=== PATIENT | male | born 1960 | race Caucasian/White ===

== ENCOUNTER 2019-12-21 19:34 | Observation (INO) | payer MEDICARE, OTHER ==
[~2019-12-21] VITALS: Ht 170.2 cm; Wt 72.7 kg
[~2019-12-21 19:34] MED LIST: AZITHROMYCIN 250MG TABLET PO SCH
[2019-12-21] MEDS ORDERED: LOSA50TA88 PO ×2 (20:35→23:37)
[2019-12-21] MEDS ORDERED: ANOR1AER PO (20:35)
[2019-12-21] MEDS ORDERED: ENOX40IN3 SC (20:35)
[2019-12-21] MEDS ORDERED: DALI1TAB2 PO ×2 (20:35→23:37)
[2019-12-21] MEDS ORDERED: TORS100T PO ×2 (20:35→23:37)
[2019-12-21] MEDS ORDERED: DIGO0.123 PO ×2 (20:35→23:37)
[2019-12-21] MEDS ORDERED: MONT10TA4 PO ×2 (20:35→23:37)
[2019-12-21] MEDS ORDERED: CART240C3 PO ×2 (20:35)
[2019-12-21] MEDS ORDERED: SPIR50TA4 PO ×2 (20:35→23:37)
[2019-12-21] MEDS ORDERED: CLOP75TA2 PO ×2 (20:35→23:37)
[2019-12-21] MEDS ORDERED: ISOS20TAB PO ×2 (20:35→23:37)
[2019-12-21] MEDS ORDERED: OMEP40CA97 PO (20:35)
[2019-12-21] MEDS ORDERED: FENO48TA7 PO (20:35)
[2019-12-21] MEDS ORDERED: HYDR-3713 PO ×2 (20:35→23:37)
[2019-12-21] MEDS ORDERED: IPRA0.00 NEB (20:35)
[2019-12-21] MEDS ORDERED: INSU100V3 SQ ×2 (20:35→23:37)
[2019-12-21] MEDS ORDERED: ATOR40TA75 PO ×2 (20:35→23:37)
[2019-12-21 21:09] LABS: BASO % 0.3 % (0.0-1.0); EOS # 0.2 10^3/uL (0.0-0.5); EOS % 2.6 % (0.0-3.0); HEMATOCRIT 43.6 % (42.0-52.0); HEMOGLOBIN 14.3 g/dl (13.5-17.5); LYMPH # 0.8 10^3/uL (1.5-5.0); LYMPH % 9.4 % (24.0-44.0); MEAN CORPUSCULAR HEMOGLOBIN 28.1 pg (27.0-33.0); MEAN CORPUSCULAR HGB CONC 32.8 g/dl (32.0-36.5); MEAN CORPUSCULAR VOLUME 85.7 fl (80.0-96.0); MONO # 0.4 10^3/uL (0.0-0.8); MONO % 4.8 % (0.0-5.0); NEUTROPHILS # 7.1 10^3/uL (1.5-8.5); NEUTROPHILS % 82.4 % (36.0-66.0); PLATELET COUNT, AUTOMATED 343 10^3/uL (150-450); RED BLOOD COUNT 5.09 10^6/uL (4.30-6.10); WHITE BLOOD COUNT 8.6 10^3/uL (4.0-10.0)
[2019-12-21 21:18] LABS: INR 0.97
[2019-12-21 21:19] LABS: PARTIAL THROMBOPLASTIN TIME 34.2 SECONDS (25.0-38.4)
--- NOTE | 2019-12-21 21:26 | REPVR ---
PROCEDURE INFORMATION: Exam: XR Chest, 1 View Exam date and time: 12/21/2019 8:49 PM Age: 59 years old Clinical indication: Other: Chest pain TECHNIQUE: Imaging protocol: XR of the chest Views: 1 view. COMPARISON: No relevant prior studies available. FINDINGS: Lungs: Mild basilar interstitial lung changes. Scattered calcified granulomata. No airspace infiltrates. Pleural space: Unremarkable. No pleural effusion. No pneumothorax. Heart/Mediastinum: Unremarkable. No cardiomegaly. Bones/joints: Prior sternotomy. Prior sternotomy. Skeletal degenerative changes are noted. IMPRESSION: 1. Chronic interstitial changes. 2. No acute findings. Electronically signed by: Martin Lee On 12/21/2019 21:26:30 PM
[2019-12-21 21:51] LABS: ALBUMIN 2.1 GM/DL (3.2-5.2); ALT/SGPT 13 U/L (12-78); BILIRUBIN,DIRECT < 0.1 MG/DL (0.0-0.2); BILIRUBIN,TOTAL 0.2 MG/DL (0.2-1.0); BLOOD UREA NITROGEN 25 MG/DL (7-18); CALCIUM LEVEL 8.8 MG/DL (8.8-10.2); CARBON DIOXIDE LEVEL 30 MEQ/L (21-32); CHLORIDE LEVEL 101 MEQ/L (98-107); CK-MB VALUE MASS 3.9 NG/ML (<3.6); CPK CREATINE PHOSPHOKINASE 94 U/L (39-308); CREATININE FOR GFR 1.05 MG/DL (0.70-1.30); GLOMERULAR FILTRATION RATE > 60.0 (>49); GLUCOSE, FASTING 387 MG/DL (70-100); LIPASE 249 U/L (73-393); MB/CK RELATIVE INDEX 4.15 (< OR =4); NT-PRO BNP 878 PG/ML (<125); POTASSIUM SERUM 5.3 MEQ/L (3.5-5.1); SODIUM LEVEL 133 MEQ/L (136-145); TOTAL PROTEIN 5.7 GM/DL (6.4-8.2); TROPONIN I < 0.02 NG/ML (< 0.10)
--- NOTE | 2019-12-21 22:38 | REPVR ---
PROCEDURE INFORMATION: Exam: XR Left Hip with Pelvis when Performed Exam date and time: 12/21/2019 10:32 PM Age: 59 years old Clinical indication: Other: Fall; Additional info: Fall injury TECHNIQUE: Imaging protocol: XR Left hip with pelvis when performed. Views: 2 or 3 views. COMPARISON: No relevant prior studies available. FINDINGS: Bones/joints: Degenerative changes in the SI joint and left hip. No fracture or malalignment. Soft tissues: Unremarkable. IMPRESSION: 1. No fracture or malalignment. 2. Osteoarthritis. Electronically signed by: Martin Lee On 12/21/2019 22:38:08 PM
--- NOTE | 2019-12-21 22:39 | REPVR ---
PROCEDURE INFORMATION: Exam: XR Left Shoulder Exam date and time: 12/21/2019 10:32 PM Age: 59 years old Clinical indication: Other: Fall; Additional info: Fall injury TECHNIQUE: Imaging protocol: XR Left shoulder. Views: 2 or more views. COMPARISON: No relevant prior studies available. FINDINGS: Bones/joints: Mild degenerative changes. No acute fracture or malalignment. Soft tissues: Soft tissues are unremarkable. IMPRESSION: No fracture or malalignment. Electronically signed by: Martin Lee On 12/21/2019 22:39:30 PM
[2019-12-21] MEDS ORDERED: IPRA0.00 INH (23:37)
[2019-12-21] MEDS ORDERED: OMEP-221 PO (23:37)
[2019-12-21] MEDS ORDERED: ANOR1AER INH (23:37)
[2019-12-21] MEDS ORDERED: ENOX80IN3 SC (23:37)
[2019-12-21] MEDS ORDERED: NITR4TASL SL (23:37)
[2019-12-21] MEDS ORDERED: DILT240C82 PO (23:37)
[2019-12-21] MEDS ORDERED: AZIT-10 PO (23:37)
[2019-12-21] MEDS ORDERED: ACETAMINOPHEN TAB 650MG DOSE (2X325MG) PO PRN (23:45)
[2019-12-21] MEDS ORDERED: NORCO, ANEXSIA 5/325MG TABLET (HYDROcodone/ACETAMINOPHEN) PO PRN (23:45)
--- NOTE | 2019-12-21 23:53 | HPEPDOC ---
[facility] Medical History & Physical Date of Admission Dec 21, 2019 Date of Service: Dec 21, 2019 Attending Physician: Ngozi Rollins MD History and Physical CHIEF COMPLAINT: weakness HISTORY OF PRESENT ILLNESS: Patient is a 59 year old male presenting with chief complaint of generalized weakness. He states around 1100 on 12/21/2019 he was walking and felt sudden onset weakness in his lower extremities causing him to collapse to his knees. He denies LOC, head trauma, or symptoms like chest pain, palpitations, or dyspnea prior to or following the collapse. He states these symptoms were similar to one of the four strokes he has had in the past. After taking an hour or so to get up, he called his who contacted EMS. His work up in the emergency department was unremarkable but concerning for ongoing generalized weakness so the hospitalist team was consulted for admission. PAST MEDICAL HISTORY: Atrial fibrillation on lovenox CAD with x4 stents COPD on 3L at home. Hx of CVAx4 HTN Type 2 DM PAST SURGICAL HISTORY: Mitral valve replacements X2 Cholecystectomy Cardiac catheterization SOCIAL HISTORY: No EtOH use in 20 years, prior 7PPD smoker for 53 years, quit 4 years ago. Denies illicit drug use, lives with his . No pets at home. FAMILY HISTORY: Denies family hx of strokes Brother with lung cancer Father and mother both of renal failure ALLERGIES: Please see below. REVIEW OF SYSTEMS: Constitutional: Denies fevers, chills, night sweats, or recent unexpected weight change HEENT: Denies Headaches, head trauma, No visual changes or eye pain, denies nose bleeds, or difficulty swallowing Cardiovascular: Denies chest pain, palpitations, or orthopnea Respiratory: Denies cough, wheezing, or shortness of breath GI: Todd nausea, vomiting, abdominal pain, diarrhea or constipation : Denies pain with urination or frequency Musculoskeletal: Denies joint pain or swelling Neuro / Psych: As per hpi. Denies numbness/tingling in extremities. States he has numbness in his face bilaterally. Skin: Denies skin rashes HOME MEDICATIONS: Please see below. PHYSICAL EXAMINATION: VITAL SIGNS: See below. GENERAL APPEARANCE: Well appearing male sitting upright with his shirt off in bed in no acute distress HEENT: NC, AT, EOMI, no scleral icterus, mucous membranes moist, no pharyngeal erythema. CARDIOVASCULAR: Irregular rate and rhythm. Normal S1 and S2. Systolic murmur a ppreciated over LUSB. LUNGS: Mildly diminished bilaterally with no wheezes, crackles, or rhonchi. ABDOMEN: Soft, non-tender, non-distended. No masses or ecchymosis. no CVA tenderness. MUSCULOSKELETAL: No muscle or joint pain on exam. EXTREMITIES: No swelling or edema. NEUROLOGICAL: A&Ox3, CN II-XII intact. Strength +5/5 in bilateral upper and lower extremities. Rhomberg sign negative. Patellar and biceps DTR's +2/4. Sensation intact in bilateral UE/LE. PSYCHIATRIC: Normal mood and affect. LABORATORY DATA: See below. IMAGIN12/21/2019 CXR: IMPRESSION: 1. Chronic interstitial changes. 2. No acute findings. 12/21/2019 L-Shoulder XR: IMPRESSION: No fracture or malalignment. 12/21/2019 Hip XR: IMPRESSION: 1. No fracture or malalignment. 2. Osteoarthritis. 12/21/[address]: IMPRESSION: 1. Atrophy and chronic white matter changes. No acute intracranial abnormality. 2. Multiple old infarcts with encephalomalacia. MICROBIOLOGY: Please see below. Assessment/Plan: #. TIA -Head CT ordered to r/o acute bleed s/p fall on lovenox, study indicating multiple old infarcts with encephalomalacia -Neuro exam unremarkable. Patient later stating to nursing staff of diminished sensation in bilateral face that he states had started earlier that day when he had his weakness. -Continue Statin, start full dose aspirin -MRI, MRA, carotid duplex ordered for AM. -Echo ordered #. Generalized weakness, acute. Possibly 2/2 to problem #1. -PT/OT ordered #. Atrial fibrillation on lovenox -Continue lovenox SQ BID -Currently rate controlled on digoxin, cardizem #. COPD on 3L at home. -Continue home zithromax, duonebs, anoro ellipta converted to advair -Patient may take home Roflumilast #. CAD with x4 stents -Denies chest pain, SOB -Continue plavix. #. Hx of CVA -Continue statin, adding full dose ASA #. Hx of CHF? -Patient on spironolactone, losartan, isordil, torsemide -Echo ordered as above. #. HTN -Continue home blood pressure medications #. Type 2 DM -Sliding scale -consistent carb diet Diet: Consistent carbs DVT prophylaxis: On therapeutic lovenox, teds, seqs CODE status: Full code Vital Signs Vital Signs Date Time Temp Pulse Resp B/P (MAP) Pulse Ox O2 Delivery O2 Flow Rate FiO2 12/21/19 19:45 96.2 106 18 151/72 (98) 100 Room Air Laboratory Data Labs 24H Laboratory Tests 2 12/21/19 20:59: Prothrombin Time 13.0, Prothromb Time International Ratio 0.97, Activated Partial Thromboplast Time 34.2, Anion Gap 2L, Glomerular Filtration Rate > 60.0, Calcium Level 8.8, Total Bilirubin 0.2, Direct Bilirubin < 0.1, Aspartate Amino Transf (AST/SGOT) 14, Alanine Aminotransferase (ALT/SGPT) 13, Alkaline Phosphatase 164H, Total Creatine Kinase 94, Creatine Kinase MB 3.9H, Creatine Kinase MB Relative Index 4.15H, Troponin I < 0.02, LI-Umw-Q-Type Natriuretic P eptide 878H, Total Protein 5.7L, Albumin 2.1L, Albumin/Globulin Ratio 0.6, Lipase 249, Thyroid Stimulating Hormone (TSH) 3.050 12/21/19 21:01: Immature Granulocyte % (Auto) 0.5, Neutrophils (%) (Auto) 82.4H, Lymphocytes (%) (Auto) 9.4L, Monocytes (%) (Auto) 4.8, Eosinophils (%) (Auto) 2.6, Basophils (%) (Auto) 0.3, Neutrophils # (Auto) 7.1, Lymphocytes # (Auto) 0.8L, Monocytes # (Auto) 0.4, Eosinophils # (Auto) 0.2, Basophils # (Auto) 0.0, Nucleated Red Blood Cells % (auto) 0.0 CBC/BMP Laboratory Tests 12/21/19 20:59 12/21/19 21:01 Microbiology Microbiology 12/21/19 Blood Culture, Received Pending 12/21/19 Blood Culture, Received Pending Home Medications Scheduled Atorvastatin Calcium (Atorvastatin Calcium) 40 Mg Tablet, 40 MG PO DAILY Azithromycin (Azithromycin) 250 Mg Tablet, 250 MG PO 3XW THURSDAY, THURSDAY AND THURSDAY AT 1600 Clopidogrel Bisulfate (Clopidogrel) 75 Mg Tablet, 75 MG PO DAILY Digoxin (Digoxin) 125 Mcg Tablet, 125 MCG PO DAILY Diltiazem HCl (Diltiazem 24Hr ER) 240 Mg Cap.er.24h, 240 MG PO BID Enoxaparin Sodium (Enoxaparin Sodium) 80 Mg/0.8 Ml Syringe, 80 MG SC Q12H Insulin Aspart (Insulin Aspart) 100 Unit/1 Ml Vial, 10 UNIT SQ AC Isosorbide Dinitrate (Isosorbide Dinitrate) 20 Mg Tablet, 20 MG PO BID Losartan Potassium (Losartan Potassium) 50 Mg Tablet, 50 MG PO DAILY Montelukast Sodium (Montelukast Sodium) 10 Mg Tablet, 10 MG PO DAILY Omeprazole (Omeprazole) 40 Mg Capsule.dr, 40 MG PO DAILY Roflumilast (Daliresp) 500 Mcg Tablet, 500 MCG PO DAILY Spironolactone (Spironolactone) 50 Mg Tablet, 50 MG PO DAILY Torsemide (Torsemide) 100 Mg Tablet, 50 MG PO DAILY Umeclidinium Brm/Vilanterol Tr (Anoro Ellipta 62.5-25 Mcg INH) [address]dev, 1 PUFF INH DAILY Scheduled PRN Hydrocodone/Acetaminophen (Hydrocodone-Acetamin 5-325 mg) 1 Each Tablet, 1 TAB PO Q4H PRN for PAIN MDD 4 Ipratropium/Albuterol Sulfate (Iprat-Albut 0.5-3(2.5) mg/3 ml) 3 Ml Ampul.neb, 3 ML INH QID PRN for SHORTNESS OF BREATH Nitroglycerin (Nitrostat) 0.4 Mg Tab.subl, 0.4 MG SL NITRO PRN for CHEST PAIN Allergies Coded Allergies: Iodinated Contrast Media (Verified Allergy, Unknown, 12/21/19) A-FIB/CHADSVASC A-FIB History Current/History of A-Fib/PAF?: Yes Current PO Anticoag Therapy: No Age/Risk Factor Scoring CHADSVASC: CHADSVASC Response (Comments) Value Age Risk Factor Age < 65 years old 0 Gender Risk Factor Male 0 Hx of CHF Yes 1 Hx of HTN Yes 1 Hx of Stroke/TIA/or VTE Yes 2 Hx of Diabetes Yes 1 Total 5 Treatment Treatment ordered: Other Other anticoagulant ordered: Patient takes therapeutic SQ lovenox BID GME ATTESTATION GME ATTESTATION My faculty preceptor for this patient encounter was physically present during the encounter and was fully available. All aspects of the patient interview, examination, medical decision making process, and medical care plan development were reviewed and approved by the faculty preceptor. The faculty preceptor is aware and concurs with the plan as stated in the body of this note and will attest to such by his/her cosignature. ATTENDING NOTE I, Ngozi Quezada , have independently examined this patient and performed my own physical exam, as well as reviewed the documentation and edited where necessary. I have discussed in detail with the resident / student the findings and plan of treatment as documented by the resident / student and edited their note. I agree with their findings and treatment plan and have edited their documentation. I will continue to follow the patient during this hospital stay HILARIO ADLER DO Dec 21, 2019 23:53 Ngozi Rollins MD Dec 22, 2019 06:07
--- NOTE | 2019-12-22 00:13 | REPVR ---
PROCEDURE INFORMATION: Exam: CT Head Without Contrast Exam date and time: 12/21/2019 11:45 PM Age: 59 years old Clinical indication: Other: Weakness TECHNIQUE: Imaging protocol: Computed tomography of the head without contrast. Radiation optimization: All CT scans at this facility use at least one of these dose optimization techniques: automated exposure control; mA and/or kV adjustment per patient size (includes targeted exams where dose is matched to clinical indication); or iterative reconstruction. COMPARISON: No relevant prior studies available. FINDINGS: Brain: There is mild cerebral atrophy. Changes of chronic white matter microvascular disease are present. No signs of a recent infarction or hemorrhage. Old infarct with large areas of encephalomalacia in the right hemisphere. Smaller infarcts in the left hemisphere. Ventricles: Normal. No ventriculomegaly. Bones/joints: Unremarkable. No acute fracture. Sinuses: Visualized sinuses are unremarkable. No fluid levels. Mastoid air cells: Visualized mastoid air cells are well aerated. Soft tissues: Unremarkable. IMPRESSION: 1. Atrophy and chronic white matter changes. No acute intracranial abnormality. 2. Multiple old infarcts with encephalomalacia. Electronically signed by: Martin Lee On 12/22/2019 00:12:41 AM
[2019-12-22] MEDS: ENOXAPARIN 80MG/0.8ML SYRINGE (J1650 PER 10MG) SC SCH ×3 (00:55→20:52)
[2019-12-22] MEDS: ISOSORBIDE DIN. (ISORDIL) 20 MG TAB PO SCH ×2 (00:55→08:52)
[2019-12-22] MEDS ORDERED: DEXTROSE 50% 50 ML SYRINGE IV PRN (01:00)
[2019-12-22] MEDS ORDERED: GLUCAGON INJ 1MG VIAL SC PRN (01:00)
[2019-12-22] MEDS ORDERED: GLUCOSE 4GM CHEW TABLET PO PRN (01:00)
[2019-12-22 02:57] VITALS: BP 147/87
[2019-12-22] MEDS ORDERED: HumaLOG INSULIN (NovoLOG) PER UNIT SC ONE (03:45)
[2019-12-22 06:00] VITALS: BP 124/82
[2019-12-22 06:03] LABS: HEMATOCRIT 35.6 % (42.0-52.0); HEMOGLOBIN 11.6 g/dl (13.5-17.5); MEAN CORPUSCULAR HEMOGLOBIN 27.7 pg (27.0-33.0); MEAN CORPUSCULAR HGB CONC 32.6 g/dl (32.0-36.5); PLATELET COUNT, AUTOMATED 279 10^3/uL (150-450); RED BLOOD COUNT 4.19 10^6/uL (4.30-6.10); WHITE BLOOD COUNT 7.5 10^3/uL (4.0-10.0)
[2019-12-22 06:29] LABS: BLOOD UREA NITROGEN 27 MG/DL (7-18); CALCIUM LEVEL 8.2 MG/DL (8.8-10.2); CARBON DIOXIDE LEVEL 28 MEQ/L (21-32); CHLORIDE LEVEL 101 MEQ/L (98-107); CREATININE FOR GFR 1.04 MG/DL (0.70-1.30); GLOMERULAR FILTRATION RATE > 60.0 (>49); GLUCOSE, FASTING 398 MG/DL (70-100); POTASSIUM SERUM 4.6 MEQ/L (3.5-5.1); SODIUM LEVEL 133 MEQ/L (136-145)
[2019-12-22 06:40] VITALS: BP 143/79
[2019-12-22 07:17] LABS: ETHYL ALCOHOL (ETHANOL) < 0.003 % (0.000-0.010)
[2019-12-22] MEDS: ADVAIR HFA 230/21MCG INHALER INH SCH ×2 (07:27→20:00)
[2019-12-22] MEDS: HumaLOG INSULIN (NovoLOG) PER UNIT SC SCH ×3 (08:47→18:47)
[2019-12-22] MEDS: ATORVASTATIN 20 MG TAB PO SCH (08:48)
[2019-12-22] MEDS: MONTELUKAST 10 MG TAB PO SCH (08:49)
[2019-12-22] MEDS: DIGOXIN 0.125 MG TAB PO SCH (08:51)
[2019-12-22] MEDS: CLOPIDOGREL 75 MG TAB PO SCH (08:52)
[2019-12-22] MEDS: ASPIRIN 81 MG CHEW TABLET PO SCH (08:54)
[2019-12-22] MEDS ORDERED: FLUBLOK(EGG FREE)(QUAD)INFLUENZA VACC 0.5ML SYRINGE 18YRS & OLDER IM ONE (09:00)
[2019-12-22] MEDS ORDERED: LOSARTAN 50MG TABLET PO SCH (09:00)
[2019-12-22] MEDS ORDERED: SPIRONOLACTONE 50 MG TAB PO SCH (09:00)
[2019-12-22] MEDS ORDERED: TORSEMIDE 100 MG TAB PO SCH (09:00)
--- NOTE | 2019-12-22 13:17 | REPVR ---
PROCEDURE INFORMATION: Exam: MR Head Without Contrast Exam date and time: 12/22/2019 12:54 PM Age: 59 years old Clinical indication: Weakness, extremity; Bilateral; Patient HX: HX CVA, weakness; Additional info: Weakness, TIA TECHNIQUE: Imaging protocol: MR of the head without contrast. COMPARISON: CT Head without contrast 12/21/2019 11:54 PM FINDINGS: Brain: Examination reveals few small foci of restricted diffusion in the left frontal and parietal subcortical white matter consistent with acute lacunar infarctions in the left MCA distribution, most likely embolic in etiology. No acute hemorrhage, mass or midline shift is seen. Stable large chronic infarction/encephalomalacia in the right frontal and parietal lobes and stable smaller chronic infarction in the left frontal and parietal lobes. There is wallerian degeneration of the corticospinal tracts on the right side. There is mild patchy increased T2 signal intensity within the bilateral cerebral periventricular white matter, consistent with chronic microvascular ischemic changes. There is mild diffuse cerebral atrophy present, consistent with this patient's age. Ventricles: The ventricular system demonstrates mild diffuse compensatory enlargement. There is ex vacuo dilatation of the right lateral ventricle. Bones/joints: Unremarkable. Sinuses: Normal as visualized. No acute sinusitis. Mastoid air cells: Normal as visualized. No mastoid effusion. Orbits: Unremarkable. Soft tissues: Unremarkable. IMPRESSION: 1. Examination reveals few small foci of restricted diffusion in the left frontal and parietal subcortical white matter consistent with acute lacunar infarctions in the left MCA distribution, most likely embolic in etiology. No acute hemorrhage, mass or midline shift is seen. 2. Stable large chronic infarction/encephalomalacia in the right frontal and parietal lobes and stable smaller chronic infarction in the left frontal and parietal lobes. There is wallerian degeneration of the corticospinal tracts on the right side. Electronically signed by: Kalia Mares On 12/22/2019 13:17:40 PM
--- NOTE | 2019-12-22 13:24 | REPVR ---
PROCEDURE INFORMATION: Exam: MR Angiogram Head Without Contrast, Arteries Exam date and time: 12/22/2019 12:54 PM Age: 59 years old Clinical indication: Weakness; Additional info: Weakness, TIA TECHNIQUE: Imaging protocol: MR angiogram head without contrast. Exam focused on the arteries. Other technique: 3D rendering: MIP and/or 3D reconstructed images were created by the technologist. COMPARISON: CT Head without contrast 12/21/2019 11:54 PM FINDINGS: ANTERIOR CIRCULATION: Right internal carotid artery: No occlusion. No stenosis. No aneurysm.. Right middle cerebral artery: No occlusion or significant stenosis. No aneurysm. Right anterior cerebral artery: No occlusion or significant stenosis. No aneurysm. Left internal carotid artery: There is complete occlusion of the visualized left internal carotid artery. MR angiogram of the neck or carotid Doppler is recommended for further evaluation. Left middle cerebral artery: There is decreased flow in the M2 segment of the left middle cerebral artery. There is a moderate 50-60% stenosis in the posterior M2 division of the left middle cerebral artery. Left anterior cerebral artery: No occlusion or significant stenosis. No aneurysm. POSTERIOR CIRCULATION: Right vertebral artery: No occlusion or significant stenosis. No aneurysm. Left vertebral artery: No occlusion or significant stenosis. No aneurysm. Basilar artery: No occlusion or significant stenosis. No aneurysm. Right posterior cerebral artery: No occlusion or significant stenosis. No aneurysm. Left posterior cerebral artery: No occlusion or significant stenosis. No aneurysm. IMPRESSION: 1. There is complete occlusion of the visualized left internal carotid artery. MR angiogram of the neck or carotid Doppler is recommended for further evaluation. 2. There is decreased flow in the M2 segment of the left middle cerebral artery. There is a moderate 50-60% stenosis in the posterior M2 division of the left middle cerebral artery. Electronically signed by: Kalia Mares On 12/22/2019 13:24:00 PM
--- NOTE | 2019-12-22 13:30 | REPVR ---
PROCEDURE INFORMATION: Exam: MR Lumbar Spine Without Contrast. Exam date and time: 12/22/2019 12:54 PM Age: 59 years old Clinical indication: Weakness; Additional info: Bl le weakness R/O stenosis TECHNIQUE: Imaging protocol: Multiplanar magnetic resonance images of the lumbar spine without intravenous contrast. COMPARISON: No relevant prior studies available. FINDINGS: Vertebrae: There is lumbarization of the S1 vertebral body with formation of a transitional vertebra. The lowermost well visualized disc will be labeled as S1-S2 . The lumbar vertebral bodies are normal in height,signal intensity and alignment.No acute fracture or dislocation is seen. Spinal epidural space: There is no evidence of epidural masses or hemorrhage. Spinal cord: The conus medullaris is normal. The cauda equina nerve roots demonstrate no crowding or displacement. L1-L2: There is no significant degenerative disc herniation.The spinal canal and neural foramina are patent and without significant stenosis. L2-L3: There is no significant degenerative disc herniation.The spinal canal and neural foramina are patent and without significant stenosis. L3-L4: There is no significant degenerative disc herniation.The spinal canal and neural foramina are patent and without significant stenosis. L4-L5: There is no significant degenerative disc herniation.The spinal canal and neural foramina are patent and without significant stenosis. Mild facet arthropathy. L5-S1: The L5-S1 disc is mildly reduced in height and T2 signal indicating degeneration. There is a mild diffuse posterior bulge at this level. Moderate facet arthropathy.There is no evidence of spinal canal narrowing. There is mild bilateral foraminal stenosis. Soft tissues: The prevertebral soft tissues appear normal. IMPRESSION: 1. There is lumbarization of the S1 vertebral body with formation of a transitional vertebra. The lowermost well visualized disc will be labeled as S1-S2 . 2. The lumbar vertebral bodies are normal in height,signal intensity and alignment.No acute fracture or dislocation is seen. 3. The L5-S1 disc is mildly reduced in height and T2 signal indicating degeneration. There is a mild diffuse posterior bulge at this level. Moderate facet arthropathy.There is no evidence of spinal canal narrowing. There is mild bilateral foraminal stenosis. Remainder of the disc spaces are well maintained. Electronically signed by: Kalia Mares On 12/22/2019 13:30:22 PM
[2019-12-22] MEDS ORDERED: NS 500 ML IV ONE (13:45)
[2019-12-22 14:00] VITALS: BP 124/67
--- NOTE | 2019-12-22 15:14 | REPVR ---
PROCEDURE INFORMATION: Exam: US Duplex Bilateral Extracranial Arteries Exam date and time: 12/22/2019 3:01 PM Age: 59 years old Clinical indication: Other: TIA TECHNIQUE: Imaging protocol: Real-time Duplex ultrasound scan of the bilateral carotid and vertebral arteries combining plata scale, color Doppler and spectral waveform analysis. Bilateral exam. COMPARISON: CT Head without contrast 12/21/2019 11:54 PM FINDINGS: Right common carotid artery: 85 cm/s. No occlusion or significant stenosis. Waveforms are normal. Right internal carotid artery: 128 cm/s. No occlusion or significant stenosis. Waveforms are normal. Mild calcified atherosclerotic plaque at the origin. Right ICA/CCA ratio: 1.5 Right external carotid artery: No stenosis in the origin. Right vertebral artery: Unremarkable. Antegrade flow. Left common carotid artery: 45 cm/s.No occlusion or significant stenosis. Waveforms are normal. Left internal carotid artery: Extensive atherosclerotic plaque is noted at the left carotid bifurcation and proximal left internal carotid artery. There is complete occlusion of the left internal carotid artery just distal to its origin. Minimal flow is seen in the proximal left ICA. 17 cm/s. Left ICA/CCA ratio: 0.38 Left external carotid artery: No stenosis in the origin. Left vertebral artery: Unremarkable. Antegrade flow. IMPRESSION: Extensive atherosclerotic plaque is noted at the left carotid bifurcation and proximal left internal carotid artery. There is complete occlusion of the left internal carotid artery just distal to its origin. Minimal flow is seen in the proximal left ICA. 17 cm/s. Moderate 50-69% stenosis at the origin of the right internal carotid artery. REFERENCES: SRU CRITERIA. The degree of internal carotid artery stenosis is based on criteria defined by the Society of [employer]iologists in Ultras[employer] (SRU). Normal is no stenosis. Mild is less than 50% stenosis. Moderate is 50-69% stenosis. Severe is greater than 69% stenosis to near occlusion. Near occlusion is a markedly narrowed lumen. Total occlusion is no detectable patent lumen. Electronically signed by: Kalia Mares On 12/22/2019 15:14:42 PM
--- NOTE | 2019-12-22 15:16 | IPNPDOC ---
Date Seen The patient was seen on 12/22/19. Progress Note SUBJECTIVE: still c/o bl le weakness. denies word finding difficulties, or difficulty comprehending. no ue paresthesias, numbness, or weakness. OBJECTIVE PHYSICAL EXAMINATION: VITALS: SEE BELOW GENERAL APPEARANCE: aaoX 3 no acute distress no use respiratory muscles. HEENT: NC, AT, EOMI,face is symmetric no scleral icterus, mucous membranes moist, no pharyngeal erythema. CARDIOVASCULAR: Irregular rate and rhythm. Normal S1 and S2. LUNGS:AEBE diminished bilaterally with no wheezes, crackles, or rhonchi. ABDOMEN: (+) BS Soft, non-tender, non-distended. No masses or ecchymosis. no CVA tenderness. MUSCULOSKELETAL: No muscle or joint pain on exam. EXTREMITIES: No swelling or edema. NEUROLOGICAL: A&Ox3, CN II-XII intact. face symmetric. speech fluent. Strength +5/5 in bilateral upper and lower extremities. Rhomberg sign negative. Patellar and biceps DTR's +2/4. Sensation intact in bilateral UE/LE. PSYCHIATRIC: Normal mood and affect. LABORATORY DATA: SEE BELOW IMAGING STUDIES: MRI Brain 12/22/19 acute lacunar infarctions in the left MCA distribution, most likely embolic in etiology. No acute hemorrhage, mass or midline shift is seen. . Stable large chronic infarction/encephalomalacia in the right frontal and parietal lobes and stable smaller chronic infarction in the left frontal and parietal lobes. There is wallerian degeneration of the corticospinal tracts on the right side. MRA Brain 12/22/19 1. There is complete occlusion of the visualized left internal carotid artery. MR angiogram of the neck or carotid Doppler is recommended for further evaluation. There is decreased flow in the M2 segment of the left middle cerebral artery. There is a moderate 50-60% stenosis in the posterior M2 division of the left middle cerebral artery. IMPRESSION: Acute Left MCA CVA 100% occlusion of Left ICA B/L LE weakness due to CVA AFib, rate controlled on chronic lvoenox 80mg sq q12h COPD on 3L at home. CAD with x4 stents CHF, compensated preserved EF DM PLAN: -Keep sbp 140-180 48hrs after acute cva until 11 am 12/23/19. hold bp meds, diuretics. continue rate control cardizem and digoxin. -Currently rate controlled on digoxin, cardizem. neurology consulted-no change in mgt. awaiting carotid dopplers. -Continue home zithromax, duonebs, anoro ellipta converted to advair -resumed Roflumilast -Continue plavix. -Continue statin, adding full dose ASA -Echo ordered as above. -consistent carbs diet.sliding scale -aru screen pt/ot. VS, I&O, 24H, Fishbone Vital Signs/I&O Vital Signs Date Time Temp Pulse Resp B/P (MAP) Pulse Ox O2 Delivery O2 Flow Rate FiO2 12/22/19 14:00 96.7 79 18 124/67 (86) 99 Nasal Cannula 4.0 I&O- Last 24 Hours up to 6 AM 12/22/19 06:00 Intake Total 537 ml Output Total 200 ml Balance 337 ml Laboratory Data 24H LABS Laboratory Tests 2 12/21/19 20:59: Prothrombin Time 13.0, Prothromb Time International Ratio 0.97, Activated Partial Thromboplast Time 34.2, Anion Gap 2L, Glomerular Filtration Rate > 60.0, Calcium Level 8.8, Total Bilirubin 0.2, Direct Bilirubin < 0.1, Aspartate Amino Transf (AST/SGOT) 14, Alanine Aminotransferase (ALT/SGPT) 13, Alkaline Phosphatase 164H, Total Creatine Kinase 94, Creatine Kinase MB 3.9H, Creatine Kinase MB Relative Index 4.15H, Troponin I < 0.02, ER-Ohg-K-Type Natriuretic Peptide 878H, Total Protein 5.7L, Albumin 2.1L, Albumin/Globulin Ratio 0.6, Lipase 249, Thyroid Stimulating Hormone (TSH) 3.050 12/21/19 21:01: Immature Granulocyte % (Auto) 0.5, Neutrophils (%) (Auto) 82.4H, Lymphocytes (%) (Auto) 9.4L, Monocytes (%) (Auto) 4.8, Eosinophils (%) (Auto) 2.6, Basophils (%) (Auto) 0.3, Neutrophils # (Auto) 7.1, Lymphocytes # (Auto) 0.8L, Monocytes # (Auto) 0.4, Eosinophils # (Auto) 0.2, Basophils # (Auto) 0.0, Nucleated Red Blood Cells % (auto) 0.0 12/22/19 02:53: Bedside Glucose (Misc Panel) 332H 12/22/19 05:45: Anion Gap 4L, Glomerular Filtration Rate > 60.0, Calcium Level 8.2L, Nucleated Red Blood Cells % (auto) 0.0, Ethyl Alcohol Level < 0.003 12/22/19 06:43: Bedside Glucose (Misc Panel) 317H 12/22/19 13:48: Bedside Glucose (Misc Panel) 168H CBC/BMP Laboratory Tests 12/21/19 20:59 12/21/19 21:01 12/22/19 05:45 Microbiology Microbiology 12/21/19 Blood Culture, Received Pending 12/21/19 Blood Culture, Received Pending ABRAN DOBBINS MD Dec 22, 2019 15:06
[2019-12-22] MEDS: IPRATROPIUM 0.5MG/ALBUTEROL 2.5MG INH SOL UD 3ML (DUONEB) INH PRN (20:32)
[2019-12-22] MEDS ORDERED: PRAVASTATIN 20 MG TAB PO SCH (21:00)
[2019-12-22] MEDS ORDERED: HumaLOG INSULIN (NovoLOG) PER UNIT SC SCH (21:00)
[2019-12-22 22:00] VITALS: BP 124/68
[2019-12-23] MEDS ORDERED: NS 1,000 ML IV ONE (00:30)
[2019-12-23 06:00] VITALS: BP 165/86
[2019-12-23 06:47] LABS: HEMATOCRIT 34.1 % (42.0-52.0); HEMOGLOBIN 11.1 g/dl (13.5-17.5); MEAN CORPUSCULAR HEMOGLOBIN 28.1 pg (27.0-33.0); MEAN CORPUSCULAR HGB CONC 32.6 g/dl (32.0-36.5); MEAN CORPUSCULAR VOLUME 86.3 fl (80.0-96.0); PLATELET COUNT, AUTOMATED 272 10^3/uL (150-450); RED BLOOD COUNT 3.95 10^6/uL (4.30-6.10)
[2019-12-23 07:02] LABS: BLOOD UREA NITROGEN 32 MG/DL (7-18); CALCIUM LEVEL 7.8 MG/DL (8.8-10.2); CARBON DIOXIDE LEVEL 28 MEQ/L (21-32); CHLORIDE LEVEL 103 MEQ/L (98-107); CREATININE FOR GFR 1.22 MG/DL (0.70-1.30); GLOMERULAR FILTRATION RATE > 60.0 (>49); GLUCOSE, FASTING 283 MG/DL (70-100); POTASSIUM SERUM 4.8 MEQ/L (3.5-5.1); SODIUM LEVEL 136 MEQ/L (136-145)
[2019-12-23] MEDS: ADVAIR HFA 230/21MCG INHALER INH SCH (08:00)
[2019-12-23] MEDS: IPRATROPIUM 0.5MG/ALBUTEROL 2.5MG INH SOL UD 3ML (DUONEB) INH PRN (08:55)
[2019-12-23] MEDS: HumaLOG INSULIN (NovoLOG) PER UNIT SC SCH ×2 (09:29→12:30)
[2019-12-23] MEDS: ENOXAPARIN 80MG/0.8ML SYRINGE (J1650 PER 10MG) SC SCH (09:29)
[2019-12-23] MEDS: ASPIRIN 81 MG CHEW TABLET PO SCH (09:30)
[2019-12-23] MEDS: DIGOXIN 0.125 MG TAB PO SCH (09:30)
[2019-12-23] MEDS: CLOPIDOGREL 75 MG TAB PO SCH (09:30)
[2019-12-23 09:31] VITALS: BP 134/63
[2019-12-23] MEDS: MONTELUKAST 10 MG TAB PO SCH (09:31)
[2019-12-23] MEDS: ATORVASTATIN 20 MG TAB PO SCH (09:31)
--- NOTE | 2019-12-23 12:44 | IPNPDOC ---
Date Seen The patient was seen on 12/23/19. Progress Note ADDENDUM TO DISCHARGE SUMMARY CHRONIC HYPOXIC RESPIRATORY FAILURE / COPD ON HOME OXYGEN 3LITER CHRONIC ATRIAL FIBRILLATION. VS, I&O, 24H, Fishbone Vital Signs/I&O Vital Signs Date Time Temp Pulse Resp B/P (MAP) Pulse Ox O2 Delivery O2 Flow Rate FiO2 12/23/19 09:45 4.0 12/23/19 09:31 134/63 12/23/19 09:30 77 12/23/19 06:00 97.6 18 99 Nasal Cannula I&O- Last 24 Hours up to 6 AM 12/23/19 06:00 Intake Total 2143 ml Output Total 600 ml Balance 1543 ml Laboratory Data 24H LABS Laboratory Tests 2 12/22/19 13:48: Bedside Glucose (Misc Panel) 168H 12/22/19 16:59: Bedside Glucose (Misc Panel) 164H 12/22/19 20:05: Bedside Glucose (Misc Panel) 209H 12/23/19 05:53: Bedside Glucose (Misc Panel) 278H 12/23/19 06:25: Nucleated Red Blood Cells % (auto) 0.0, Anion Gap 5L, Glomerular Filtration Rate > 60.0, Calcium Level 7.8L 12/23/19 11:38: Bedside Glucose (Misc Panel) 301H CBC/BMP Laboratory Tests 12/23/19 06:25 Microbiology Microbiology 12/21/19 Blood Culture - Preliminary, Resulted No growth after 24 hours . All specim... 12/21/19 Blood Culture - Preliminary, Resulted No growth after 24 hours . All specim... ABRAN DOBBINS MD Dec 23, 2019 12:44
[2019-12-23 14:00] VITALS: BP 131/61
--- NOTE | 2019-12-26 07:29 | ECHO ---
DATE OF PROCEDURE: 12/22/2019 Age: 59 Gender: Male Height: 67 inches Weight: 160 pounds Body surface area: 1.84 m2 PATIENT LOCATION: Inpatient [facility], Room 4223 REFERRING PHYSICIAN: Kevyn Natarajan, DO INDICATION: Transient ischemic attack (TIA) cardiac source of embolic material ? 2D MEASUREMENTS: RV - 4.2 cm LV 4.6 cm Septum 1.1 cm Posterior wall 1.1 cm Aortic root 4.8 cm LA 4.5 cm LVEF 70% DOPPER MEASUREMENTS: AV 2.7 mm/s LVOT 0.8 mm/s LVOT diameter 2.1 cm AV mean gradient 18 mmHg Dimensionless index 0.33 MV E 131, A 107, E/A ratio 1.2 Early mitral deceleration time 229 mm/s Mean diastolic MV gradient 5 mmHg E prime medial 7.1 A prime medial 5.9 E prime lateral 7.4 PV not well visualized RVSP 35 mmHg IVC 1.3 cm COMMENTS: Normal sinus rhythm without intraventricular conduction disturbance. Image quality is somewhat poor, but some diagnostically useful information was still obtained. M-mode and two-dimensional echocardiography was performed with pulse, continuous wave, color flow, and tissue Doppler studies. Normal left ventricular size with wall thickness upper limits of normal and normal to hyperkinetic wall motion. Moderately dilated left atrium. Cannot comment on left ventricular systolic function with mitral valve prosthesis. Mildly dilated right ventricle with normal wall motion and Doppler evidence of at least mild pulmonary hypertension. Mildly dilated right atrium, but normal IVC size and collapse against an elevated central venous pressure at this time. Moderately dilated aortic root. Mild calcific aortic stenosis without insufficiency. Mechanical prosthetic mitral valve appears to function normally with trace insufficiency as we would expect with this structure. [employer] mechanical prosthesis. Normal appearing tricuspid valve with mild insufficiency. No obvious intracardiac mass or pericardial effusion. If a cardiac source of embolic material is seriously suspect here, especially with a prosthetic mechanical valve, a transesophageal echocardiogram would be the investigation of choice. ANA
--- NOTE | 2020-01-10 11:49 | ECGEPIP ---
[facility] - ED Test Date: 2019-12-21 Pat Name: NENITA GARCÍA Department: Room: [place] [address] Gender: Male Visual Associate: laurence : 1960 Requested By: MANUEL RODRIGUEZ Order Number: [id number] Reading MD: Tong Wu Measurements Intervals [place] Rate: 105 P: 71 [place]: 141 QRS: 87 QRSD: 89 T: 268 QT: 337 QTc: 446 Interpretive Statements SINUS TACHYCARDIA NSTTW CHANGES SEE DOWNTIME SCANNED REPORT
--- NOTE | 2020-01-10 11:50 | DSES ---
DATE OF ADMISSION: 12/21/2019 DATE OF DISCHARGE: 12/23/2019 Dr. Mooney, neurologist, on consult. PRIMARY DISCHARGE DIAGNOSES: 1. Acute lacunar infarct, left middle cerebral artery. 2. Chronic large infarct in the right frontoparietal lobe. 3. Chronic infarction, left frontal and parietal lobe with Wallerian degeneration of the cortical spine tract on the right. 4. Complete occlusion of the left internal carotid artery. 5. Stenosis 50%-60% in posterior M2 division of the left middle cerebral artery. 6. Lumbarization of the S1 vertebral body, L5-S1. 7. Degenerative joint disease with posterior bulge and moderate facet arthropathy. 8. Bilateral lower extremity weakness secondary to cerebrovascular accident. 9. Atrial fibrillation, chronic, on Lovenox 80 mg subcutaneous every 12. 10. Chronic obstructive pulmonary disease, on 3 liters of home oxygen. 11. Coronary artery disease with four stents. 12. Congestive heart failure, compensated with preserved systolic function. 13. Type 2 diabetes. DISCHARGE MEDICATIONS: - atorvastatin 40 daily - azithromycin 250 three times a week - Plavix 75 daily - digoxin 125 mcg daily - diltiazem 240 twice a day - Lovenox 80 mg subcutaneous every 12 hours - hydrocodone/acetaminophen one tablet every 4 as needed - insulin sliding scale before every meal and at bedtime - Combivent 3 mL inhaled four times a day as needed - isosorbide dinitrate 20 mg twice a day - losartan 50 daily - montelukast 10 mg daily - nitroglycerin 0.4 as needed - Prilosec 40 daily - roflumilast 500 mcg daily - spironolactone 50 daily - torsemide 50 daily - Anoro Ellipta one puff inhaled daily HOSPITAL COURSE: This is a 59-year-old male with a history of chronic atrial fibrillation, multiple cerebrovascular accidents (CVAs), chronic obstructive pulmonary disease (COPD), on 3 liters home oxygen, chronic hypoxic respiratory failure, coronary artery disease (CAD), congestive heart failure (CHF), diabetes, presented to the emergency room complaining of bilateral lower extremity weakness at 11 [address] down the street. Patient was brought into the emergency room. CT of the head was unremarkable. MRI of the brain shows a new lacunar infarct in the left middle cerebral artery (MCA) distribution, most likely embolic in etiology along with a stable large chronic infarct, right frontal and parietal lobes and smaller one in the left frontoparietal with Wallerian degeneration of the cortical spinal tract on the right side. MRI of the lumbar spine was unremarkable. Per Dr. Mooney, neurologist, no change in medications. Continue on Lovenox subcutaneous. Acute rehabilitation unit (ARU) screen and physical therapy (PT)/occupational therapy (OT). Patient's blood pressure was to be kept between 140-180 forty-eight hours after the acute CVA. His diuretics had been held along with his blood pressure medications, and intravenous (IV) fluids were given to keep the blood pressure 130-165. Patient has done well. Has no neurological symptoms that were persistent. He passed home physical therapy and OT and was stable for hospital discharge. PHYSICAL EXAMINATION ON DISCHARGE: Temperature 97.6, pulse 78, respiratory rate 18, blood pressure 134/63, 99% on 4 liters nasal cannula. GENERAL: Awake, alert, oriented to person, place, and time, answering questions appropriately. Anicteric sclerae. No jaundice. Face is symmetric. Tongue is midline. No conversational dyspnea. Speech is fluent. No jugular venous distention (JVD), thyromegaly, or cervical lymphadenopathy. LUNGS: Clear to auscultation. No wheezing, rales, or rhonchi. HEART: S1, S2, irregularly irregular. ABDOMEN: Soft, nontender, nondistended. Positive bowel sounds. No masses, ecchymosis, or costovertebral angle (CVA) tenderness. EXTREMITIES: No cyanosis, clubbing, or pitting edema. Motor function is 5/5 times four extremities. Speech is fluent. Face is symmetric. No sensory disturbance. LABORATORY DATA: White count 7, hemoglobin 11, hematocrit 34, platelet count 272. Sodium 136, potassium 4.8, chloride 103, bicarbonate 28, BUN 32, creatinine 1.22, glucose 283. IMAGING STUDIES: Lumbar spine MRI: Lumbarization of the S1 vertebral body with formation of transitional vertebra, lowermost well visualized discs. Will be labeled as S1, S2. Lumbar vertebral bodies are normal in high signal intensity and alignment. No acute fracture or dislocation is seen. L5-S1 disc is mildly reduced in height and T2 signal, indicating degeneration. Mild diffuse posterior bulge at this level. Moderate facet arthropathy. No evidence of spinal column narrowing. Mild bilateral foraminal stenosis. Remainder of the disc spaces are well maintained. MRI of the brain shows an acute infarct in the left MCA distribution, lacunar, most likely embolic in nature. No acute hemorrhage, mass, or midline shift. Stable large chronic infarction, encephalomalacia in right frontoparietal area and smaller chronic infarct, left frontoparietal lobe with Wallerian degeneratio of the cortical spinal tract on the right side. Mild patchy increased T2 density within the bilateral cerebral periventricular white matter, consistent with chronic microvascular ischemic changes. There is mild diffuse cerebral atrophy present, consistent with the patient's age. Occlusion 100% of left internal carotid artery (ICA) distal to its origin. Minimal flow is seen in the proximal ICA with moderate 50%-69% stenosis at the original of the right ICA. DISCHARGE INSTRUCTIONS: Patient is to refer to vascular surgery and neurology as outpatient in order to address patient's 100% occlusion of the left ICA and 50%- 69% stenosis of the right ICA. Per neurology, patient is to be continued on chronic anticoagulation and antiplatelet therapy. PT/OT to be done as outpatient and referral to neurology and his primary care physician within a week of discharge. ANA
--- NOTE | 2020-01-16 19:27 | ECGEPIP ---
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
== END 2019-12-23 15:23 | disposition home or self-care (01) ==
LOC: M ED 19:34 → M ED INP 19:35 → ENRESERV 12-22 00:15 → M MSPAV 12-22 02:37
PROVIDERS: ADMIT Internal Medicine; ATTEND General Practice
DX: I63.512 Cerebral infarction due to unspecified occlusion or stenosis of left middle cerebral artery (principal); I65.23 Occlusion and stenosis of bilateral carotid arteries; I69.344 Monoplegia of lower limb following cerebral infarction affecting left non-dominant side; G31.89 Other specified degenerative diseases of nervous system; I48.91 Unspecified atrial fibrillation; J96.11 Chronic respiratory failure with hypoxia; J44.9 Chronic obstructive pulmonary disease, unspecified; Z99.81 Dependence on supplemental oxygen; Q76.49 Other congenital malformations of spine, not associated with scoliosis; M51.37 Other intervertebral disc degeneration, lumbosacral region; M46.97 Unspecified inflammatory spondylopathy, lumbosacral region; M48.07 Spinal stenosis, lumbosacral region; R53.1 Weakness; M16.12 Unilateral primary osteoarthritis, left hip; R00.0 Tachycardia, unspecified; R29.6 Repeated falls; I11.0 Hypertensive heart disease with heart failure; I50.9 Heart failure, unspecified; E11.9 Type 2 diabetes mellitus without complications; Z95.5 Presence of coronary angioplasty implant and graft; Z86.73 Personal history of transient ischemic attack (TIA), and cerebral infarction without residual deficits; Z87.891 Personal history of nicotine dependence; Z91.041 Radiographic dye allergy status; Z79.899 Other long term (current) drug therapy; Z79.2 Long term (current) use of antibiotics; Z79.02 Long term (current) use of antithrombotics/antiplatelets; Z79.01 Long term (current) use of anticoagulants
CPT/HCPCS: 36415; 70450; 70544; 70551; 71045; 72148; 73030; 73502; 80048; 80076; 82550; 82553; 83690; 83880; 84443; 84484; 85025; 85027; 85610; 85730; 87040; 90682; 93005; 93041; 93306; 93880; 94760; 96360; 96361; 96372; 97116; 97161; 97165; 97530; 97535; 99285; G0008; G0378; G0480; J1650